=== PATIENT | male | born 1970 | race Native Hawaiian/Other Pacific Islander ===

== ENCOUNTER 2016-09-16 10:08 | Outpatient (CLI) | payer BC ==
[2016-09-16 11:06] LABS: PLATELET COUNT 250 K/uL (142-355)
== END 2016-09-16 21:38 | disposition home or self-care (01) ==
LOC: LABW 10:08
PROVIDERS: Internal Medicine
DX: D72.829 Elevated white blood cell count, unspecified (principal); R94.6 Abnormal results of thyroid function studies
CPT/HCPCS: 36415; 84439; 84443; 85027

== ENCOUNTER 2016-10-06 09:52 | Outpatient (CLI) | payer BC | END 2016-10-06 20:16 | disposition home or self-care (01) | LOC: LABW 09:52 | PROVIDERS: Internal Medicine Cardiovascular Disease | DX: E78.2 Mixed hyperlipidemia (principal) | CPT/HCPCS: 36415; 80061 ==

== ENCOUNTER 2016-10-11 07:34 | Outpatient (CLI) | payer BC ==
[~2016-10-11] VITALS: Ht 175.3 cm; Wt 90.7 kg
== END 2016-10-11 19:11 | disposition home or self-care (01) ==
LOC: NM 07:34
DX: Z01.810 Encounter for preprocedural cardiovascular examination (principal); E11.9 Type 2 diabetes mellitus without complications
CPT/HCPCS: A9500; J2785

== ENCOUNTER 2017-03-20 08:29 | Observation (INO) | payer BC ==
[~2017-03-20] VITALS: Ht 175.3 cm; Wt 88.1 kg
[2017-03-20 09:00] VITALS: BP 148/98; TEMP 97.4
[2017-03-20 10:00] LABS: PLATELET COUNT 284 K/uL (142-355)
[2017-03-20 10:14] LABS: POTASSIUM 4.2 mmol/L (3.6-5.2); SODIUM 134 mmol/L (136-145)
[2017-03-20 11:45] VITALS: BP 140/88
[2017-03-20 13:45] VITALS: BP 150/90
[2017-03-20 18:13] VITALS: BP 162/90; TEMP 98.3; Ht 175.3 cm; Wt 88.1 kg
[2017-03-20 20:09] VITALS: BP 139/82; TEMP 98.9
[2017-03-20] MEDS ORDERED: METFORMIN ER1000 MG PO (23:32)
[2017-03-21] VITALS: BP 115/72; TEMP 98.3
[2017-03-21 04:00] VITALS: BP 99/67; TEMP 97.5
[2017-03-21 06:58] LABS: PLATELET COUNT 238 K/uL (142-355)
[2017-03-21 07:58] VITALS: BP 109/71; TEMP 98.2
[2017-03-21 08:11] LABS: POTASSIUM 3.7 mmol/L (3.6-5.2); SODIUM 138 mmol/L (136-145)
[2017-03-21 12:00] VITALS: BP 115/72; TEMP 98
--- NOTE | 2017-03-21 13:10 | NUR ---
D/C INSTRUCTIONS GIVEN TO PT. RX ATTACHED. D/C IV L FA 20G CATH TIP INTACT.
== END 2017-03-21 13:00 | disposition home or self-care (01) ==
LOC: ED 08:29 → MED/SURG 15:40
PROVIDERS: ADMIT Family Medicine
DX: N20.0 Calculus of kidney (principal); Z72.0 Tobacco use; R10.32 Left lower quadrant pain; E11.9 Type 2 diabetes mellitus without complications
CPT/HCPCS: 36415; 80053; 81000; 82550; 82948; 85027; 87040; 96360; 96361; 96365; 96366; 96375; 99220; 99284; G0378; J1170; J1885; J2405; J2550

== ENCOUNTER 2017-03-23 17:44 | Emergency (ER) | payer BC ==
[~2017-03-23] VITALS: Ht 175.3 cm; Wt 88.9 kg
[~2017-03-23 17:44] MED LIST: METFORMIN ER1000 MG PO
[2017-03-23 19:21] VITALS: BP 145/86; TEMP 98.5
== END 2017-03-23 19:29 | disposition home or self-care (01) ==
LOC: ED 17:44
DX: N20.1 Calculus of ureter (principal); N23 Unspecified renal colic
CPT/HCPCS: 96374; 96375; 99284; J1170; J1885; J2405

== ENCOUNTER 2017-09-14 09:46 | Observation (INO) | payer OTHER ==
[2017-09-14] VITALS (7 sets, daily range): BP systolic 116–152; BP diastolic 80–94; TEMP 97.8; Ht 175.3 cm; Wt 89.8 kg
[~2017-09-14] VITALS: Ht 175.3 cm; Wt 89.8 kg
[2017-09-14 11:46] LABS: POTASSIUM 3.7 mmol/L (3.6-5.2)
[2017-09-14 12:48] LABS: PARTIAL THROMBOPLASTIN TIME 29.2 SECONDS (24.5-33.6)
== END 2017-09-14 13:25 | disposition short-term general hospital (02) ==
LOC: MED/SURG 09:46 → ICU 12:15
PROVIDERS: ADMIT Family Medicine
DX: I21.4 Non-ST elevation (NSTEMI) myocardial infarction (principal); J18.9 Pneumonia, unspecified organism; E13.65 Other specified diabetes mellitus with hyperglycemia; R07.89 Other chest pain; F17.200 Nicotine dependence, unspecified, uncomplicated; R06.02 Shortness of breath
CPT/HCPCS: 36415; 80053; 82550; 83036; 84484; 85610; 85730; 87040; 90471; 93005; 99220; G0378; G0379; J1644; J3490

== ENCOUNTER 2017-09-14 13:11 | Outpatient (CLI) | payer OTHER | END 2017-09-14 13:57 | disposition short-term general hospital (02) | LOC: AMB 13:11 | DX: I21.4 Non-ST elevation (NSTEMI) myocardial infarction (principal); J18.9 Pneumonia, unspecified organism; E13.65 Other specified diabetes mellitus with hyperglycemia; R07.89 Other chest pain; F17.200 Nicotine dependence, unspecified, uncomplicated; R06.02 Shortness of breath | CPT/HCPCS: A0425; A0427 ==

== ENCOUNTER 2019-06-20 09:48 | Emergency (ER) | payer BC ==
[~2019-06-20] VITALS: Ht 175.3 cm; Wt 90.7 kg
[2019-06-20 10:22] VITALS: TEMP 97.8
[2019-06-20 11:41] LABS: PLATELET COUNT 211 K/uL (142-355)
[2019-06-20 15:49] VITALS: BP 127/82
== END 2019-06-20 15:50 | disposition home or self-care (01) ==
LOC: ED 09:48
PROVIDERS: Hospitalist
DX: K31.84 Gastroparesis (principal)
CPT/HCPCS: 80053; 81002; 82150; 83690; 84484; 85027; 87040; 93005; 96365; 96366; 96375; 96376; 99284; J1170; J1956; J2405; J2765; Q9963

== ENCOUNTER 2019-06-21 06:31 | Observation (INO) | payer BC ==
[2019-06-21] VITALS (10 sets, daily range): BP systolic 119–196; BP diastolic 63–118; TEMP 98.1–98.8; Ht 175.3 cm; Wt 92.5 kg
[~2019-06-21] VITALS: Ht 175.3 cm; Wt 92.5 kg
--- NOTE | 2019-06-21 08:55 | NUR ---
PATIENT BROUGHT VIA WHEELCHAIR FROM THE ER. PATIENT TAKEN TO ROOM 1112. ADMISSION ASSESSMENT COMPLETED AT THIS TIME. IV 18G NOTED TO THE LEFT FOREARM SALINE LOCKED. PATIENT IS HAVING NAUSEA NOTIFIED.
--- NOTE | 2019-06-21 09:44 | NUR ---
PATIENT GIVEN DEMEROL AND REGLAN FOR PAIN AND NAUSEA. NS AT 250 ML STARTED AT THIS TIME.
--- NOTE | 2019-06-21 10:15 | NUR ---
PATIENT STATED HE IS STILL HAVING PAIN. NOTIFIED AND NEW ORDER GIVEN FOR A BOLUS. BOLUS STARTED 999 ML/HR.
[2019-06-21 11:03] LABS: PLATELET COUNT 197 K/uL (142-355)
[2019-06-21 11:25] LABS: SODIUM 135 mmol/L (136-145)
--- NOTE | 2019-06-21 11:54 | NUR ---
PATIENTS CURRENT BLOOD SUGAR READING 254. REGULAR INSULIN 4 UNITS GIVEN AT THIS TIME SUBQ TO THE ABDOMEN.
--- NOTE | 2019-06-21 12:50 | NUR ---
PATIENT IS HAVING NAUSEA WITHOUT RELIEF. NOTIFIED AND A ONE TIME ORDER OF PHENERGAN 12.5 MG GIVEN IV PUSH.
--- NOTE | 2019-06-21 14:27 | NUR ---
PATIENTS BLOOD SUGAR 197. PATIENT NOT COVERED GIVEN RECENT NS BOLUS AND NPO STATUS.
--- NOTE | 2019-06-21 14:55 | NUR ---
ANU IN WITH PATIENT DISCUSSING PLAN OF CARE AND FINDINGS. PATIENT IS CURRENTLY IN DKA AND AGREES WITH CURRENT PLAN OF CARE INCLUDING TRANSFERING TO PCU FOR CLOSER OBSERVATION.
--- NOTE | 2019-06-21 15:35 | NUR ---
RECIEVED REPORT FROM ANGEL MARADIAGA RN PATIENT MOVE FROM ROOM 1112 MED SURG FLOOR TO PCU 1 BED. PATIENT ORIENTED TO ROOM, PT'S HERE. PLACED PT ON MONITOR NOTED ELEVATED B/P 176/93 P 89. 155/92 P 88. PATIENT C/O PAINS ACROSS ABD. RATED 9 STABBING CONTINIOUS PAINS.
--- NOTE | 2019-06-21 15:45 | NUR ---
DR OLIVEIRA HERE CHECKED PATIENT SPOKE WITH PATIENT AND , RECIEVED NEW ORDERS.
--- NOTE | 2019-06-21 16:42 | NUR ---
PATIENT A LITTLE RESTLESS C/O ABD PAINS RATED 9 STABBING PAINS. PT RECIEVED DILAUDID 1 MG SLOW IVP AND PO MEDS FOR ELEVATED B/P. IV FLUIDS CONTINUE AT 250 ML HR. HOB UP.
--- NOTE | 2019-06-21 17:09 | NUR ---
PT AWAKEN STATES "FEELING BETTER PAIN IS WAY DOWN" NOTED B/P 134/70 P 75 IMPROVED VITAL SIGNS WILL GIVE LASIX A LITTLE LATER WHEN PT MORE AWAKE. PAIN MEDS EFFECTIVE B/P COMING DOWN. WILL CONTINUE TO MONITOR.
--- NOTE | 2019-06-21 18:07 | NUR ---
PATIENT DROWSY, DR OLIVEIRA VISITED SPOKE WITH PATIENT STATED "FEELING BETTER". RECIEVED ORDERS IV FLUIDS TO 125 ML HR WILL START DIABETIC CLEAR LIQUIDS FOR DINNER. VITAL SIGNS IMPROVED B/P 138/63 P 69.
--- NOTE | 2019-06-21 19:07 | NUR ---
PATIENT UP TO BEDSIDE ATE CLEAR LIQUIDS DIABETIC DIET, KRISSY WELL NO COMPLAINTS OF NAUSEA. IV FLUIDS CHANGED TO 125 ML HR. REPORT TO ONCOMING SHIFT.
[2019-06-22] VITALS: BP 92/51; TEMP 98.3
[2019-06-22 02:00] VITALS: BP 105/63
[2019-06-22 04:05] VITALS: BP 92/52; TEMP 98.1
[2019-06-22 05:52] VITALS: BP 102/66; TEMP 98.3
[2019-06-22 07:00] VITALS: BP 100/66; TEMP 97.6
--- NOTE | 2019-06-22 07:20 | NUR ---
RECIEVED REPORT. PATIENT UP AND OUT OF BED TO CHAIR STATES "FEELING MUCH BETTER" DR OLIVEIRA VISITED CHECKED PATIENT ORDERED AM LABS.
[2019-06-22 09:00] VITALS: BP 106/61
[2019-06-22 09:11] LABS: PLATELET COUNT 151 K/uL (142-355)
[2019-06-22 09:13] LABS: POTASSIUM 4.1 mmol/L (3.6-5.2)
--- NOTE | 2019-06-22 09:25 | NUR ---
PATIENT CONTINUES UP IN CHAIR. NO COMPLAINTS DENIES NAUSEA DENIES PAINS. RECIEVED LAB RESULTS. PATIENT ATE 100% 1800 ADA BREAKFAST KRISSY WELL. CALLED TO DR OLIVEIRA REPORT PT STATUS, RECIEVED ORDERS.
--- NOTE | 2019-06-22 10:02 | NUR ---
DR OLIVEIRA VISITED TALKED WITH PATIENT GAVE DISCHARGE ORDERS AND RX. PT VERBALIZED UNDERSTANDING.
--- NOTE | 2019-06-22 10:45 | NUR ---
REVIEWED DISCHARGE ORDERS AND RX WITH PATIENT VERBALIZED UNDERSTANDING. REMOVED IV LEFT ARM CATH INTACT, NO REDNESS NO SWELIING AT SITE. REMOVED TELE. MONITOR. PATIENT UP IN ROOM AMBULATED TO BATHROOM NO COMPLAINTS. MADE CALL TO TO COME PICK HIM UP.
--- NOTE | 2019-06-22 11:38 | NUR ---
PT'S HER TO GET HIM. REVIEWED WITH HER DISCHARGE ORDERS, ASSISTED TO PRIVATE CAR TO GO HOME WITH NO COMPLAINTS VOICED. DISCHARGED FROM PCU.
== END 2019-06-22 11:30 | disposition home or self-care (01) ==
LOC: ED 06:31 → MED/SURG 07:10 → PCU 17:22
PROVIDERS: Family Medicine; ADMIT Hospitalist
DX: E11.10 Type 2 diabetes mellitus with ketoacidosis without coma (principal); R11.2 Nausea with vomiting, unspecified; R10.84 Generalized abdominal pain; E87.1 Hypo-osmolality and hyponatremia; D72.828 Other elevated white blood cell count; I10 Essential (primary) hypertension; I25.2 Old myocardial infarction; E11.65 Type 2 diabetes mellitus with hyperglycemia; Z72.0 Tobacco use; N20.0 Calculus of kidney
CPT/HCPCS: 36415; 80053; 80307; 81000; 81002; 82150; 82550; 83036; 83605; 83690; 84443; 84484; 85027; 85379; 86318; 93005; 96360; 96375; 99220; 99284; G0378; J1170; J1650; J1815; J1885; J1940; J2175; J2405; J2550; J2765; J3490

== ENCOUNTER 2019-06-24 08:18 | Emergency (ER) | payer BC ==
[~2019-06-24] VITALS: Ht 175.3 cm; Wt 89.4 kg
[2019-06-24 08:26] VITALS: BP 163/91; TEMP 97.9
[2019-06-24 09:20] LABS: POTASSIUM 3.4 mmol/L (3.6-5.2); SODIUM 135 mmol/L (136-145)
[2019-06-24 09:25] LABS: PLATELET COUNT 214 K/uL (142-355)
== END 2019-06-24 11:48 | disposition home or self-care (01) ==
LOC: ED 08:18
PROVIDERS: Emergency Medicine
DX: E11.43 Type 2 diabetes mellitus with diabetic autonomic (poly)neuropathy (principal); K31.84 Gastroparesis
CPT/HCPCS: 36415; 80053; 80307; 81000; 82150; 82550; 83605; 83690; 84484; 85027; 86318; 93005; 96360; 96375; 99284; J1885; J2405; J2765

== ENCOUNTER 2019-10-24 00:57 | Inpatient (IN) | payer BC ==
[~2019-10-24] VITALS: Ht 175.3 cm; Wt 94.9 kg
[2019-10-24 01:12] VITALS: BP 173/100; TEMP 98.1
[2019-10-24 02:18] LABS: POTASSIUM 4.3 mmol/L (3.6-5.2)
[2019-10-24 02:23] LABS: PLATELET COUNT 242 K/uL (142-355)
[2019-10-24 04:15] VITALS: BP 160/84; TEMP 98.3; Ht 175.3 cm; Wt 94.9 kg
[2019-10-24 08:00] VITALS: BP 104/50; TEMP 98.6
[2019-10-24 12:00] VITALS: BP 106/47; TEMP 97.8
[2019-10-24 16:11] VITALS: BP 162/82; TEMP 98
[2019-10-24 20:00] VITALS: BP 177/91; TEMP 98.4
[2019-10-25] VITALS: BP 141/89; TEMP 98.3
[2019-10-25 03:28] LABS: POTASSIUM 3.5 mmol/L (3.6-5.2)
[2019-10-25 03:49] LABS: PLATELET COUNT 181 K/uL (142-355)
[2019-10-25 04:00] VITALS: BP 146/87; TEMP 98.3
[2019-10-25] MEDS ORDERED: 904272561 PO (16:50)
[2019-10-25] MEDS ORDERED: ZOFRAN8 MG PO (16:52)
[2019-10-25] MEDS ORDERED: HYDR10TA51 PO (16:54)
== END 2019-10-25 17:30 | disposition home or self-care (01) | DRG 690 ==
LOC: ED 00:57 → MED/SURG 02:48
PROVIDERS: Internal Medicine; ADMIT Emergency Medicine
DX: N10 Acute pyelonephritis (principal); N20.0 Calculus of kidney; E11.65 Type 2 diabetes mellitus with hyperglycemia; N17.8 Other acute kidney failure; I10 Essential (primary) hypertension; I25.10 Atherosclerotic heart disease of native coronary artery without angina pectoris; I25.2 Old myocardial infarction; E78.49 Other hyperlipidemia
CPT/HCPCS: 36600; 80053; 81000; 81002; 82570; 82805; 82947; 83036; 84300; 85027; 96365; 96375; 96376; 99284; J0696; J1815; J1885; J2175; J2270; J2405; J2550

== ENCOUNTER 2020-06-02 09:00 | Emergency (ER) | payer BC ==
[~2020-06-02] VITALS: Ht 175.3 cm; Wt 94.8 kg
[~2020-06-02 09:00] MED LIST changes: +904272561 PO; +HYDR10TA51 PO; +ZOFRAN8 MG PO
[2020-06-02 09:06] VITALS: TEMP 97
[2020-06-02 09:49] LABS: PLATELET COUNT 277 K/uL (142-355)
[2020-06-02 10:16] LABS: POTASSIUM 4.4 mmol/L (3.6-5.2)
[2020-06-02 14:55] VITALS: BP 171/87
== END 2020-06-02 14:55 | disposition home or self-care (01) ==
LOC: ED 09:00
PROVIDERS: Family Medicine
DX: E11.43 Type 2 diabetes mellitus with diabetic autonomic (poly)neuropathy (principal); K31.84 Gastroparesis; K29.60 Other gastritis without bleeding; Z79.84 Long term (current) use of oral hypoglycemic drugs
CPT/HCPCS: 36415; 80053; 81000; 82150; 83690; 85027; 96360; 96365; 96375; 99284; J1885; J2405; J2543; J2550; J3490